=== PATIENT | male | born 2005 | race Hispanic/Latino ===

== ENCOUNTER 2023-05-09 14:29 | Emergency (ER) | payer BC, MEDICAID ==
[~2023-05-09] VITALS: Ht 167.6 cm; Wt 77.1 kg
[2023-05-09] MEDS ORDERED: 0.9%NACL 1000ML 1,000 ML IV ONE (15:30)
[2023-05-09] MEDS ORDERED: IOHEXOL-350 75 ML VIAL IV ONE (15:45)
[2023-05-09 16:08] LABS: BASOPHILS # (AUTO) 0.03 K/uL (0.00-0.20); BASOPHILS % (AUTO) 0.3 % (0.0-5.0); EOSINOPHILS # (AUTO) 0.05 K/uL (0.00-0.70); EOSINOPHILS % (AUTO) 0.4 % (0.0-8.0); HEMATOCRIT 46.3 % (42-54); IMMATURE GRANULOCYTE ABSOLUTE 0.04 K/uL (0-1); LYMPHOCYTES # (AUTO) 2.5 K/uL (1.0-4.8); LYMPHOCYTES % (AUTO) 21.5 % (21.0-51.0); MEAN CORPUSCULAR HEMOGLOBIN 29.7 pg (27.0-33.0); MEAN CORPUSCULAR HGB CONC 32.6 g/dL (32.0-36.0); MEAN CORPUSCULAR VOLUME 91.1 fL (80-100); MONOCYTES # (AUTO) 1.1 K/uL (0.1-1.0); MONOCYTES % (AUTO) 9.4 % (3.0-13.0); NEUTROPHILS # (AUTO) 8.1 K/uL (1.8-7.7); NEUTROPHILS % (AUTO) 68.1 % (40.0-77.0); PLATELET COUNT (AUTO) 230 K/uL (130-400); RED BLOOD CELL COUNT(AUTO) 5.08 MIL/uL (4.50-6.20); RED CELL DISTRIBUTION WIDTH 14.2 % (11.0-15.5); WHITE BLOOD COUNT (AUTO) 11.8 K/uL (4.8-10.8)
[2023-05-09 16:24] LABS: ALBUMIN 4.2 g/dL (3.5-5.0); BILIRUBIN,TOTAL 0.5 mg/dL (0.2-1.0); POTASSIUM 3.6 mmol/L (3.5-5.1); TOTAL PROTEIN, SERUM 8.6 g/dL (6.0-8.3)
[2023-05-09] MEDS ORDERED: LEVOFLOXACIN 500 MG/D5W 100 ML 0 ML ONE (17:15)
[2023-05-09] MEDS ORDERED: METRONIDAZOLE 500MG/100ML BAG 100 ML ONE (17:16)
[2023-05-09 17:40] LABS: RAPID PLASMA REAGIN NONREACTIVE (NONREACTIVE)
[2023-05-09] MEDS ORDERED: METR-172 PO (18:03)
[2023-05-09 18:52] VITALS: BP 122/68; PULSE 82; RESP 18; O2SAT 100
[2023-05-09] MEDS ORDERED: METRONIDAZOLE 500MG/100ML BAG 100 ML IVPB SCH (22:00)
== END 2023-05-09 18:53 | disposition home or self-care (01) ==
LOC: EDH 14:29
DX: K62.89 Other specified diseases of anus and rectum (principal)
CPT/HCPCS: 99284; 74178; 96365; 96361; 96366; 86592; 80053; 85025; 87040 ×2; 83605; 86701; 87390; 36415; J7030; J3490; Q9967; J1956